=== PATIENT | female | born 1980 | race Caucasian/White ===

== ENCOUNTER 2021-11-09 11:01 | Observation (INO) | payer BC ==
[2021-11-09] MEDS ORDERED: LINZESS72 MCG PO (12:10)
[2021-11-09] MEDS ORDERED: SYNTHROID125 MCG PO (12:10)
[2021-11-09] MEDS ORDERED: HYDROCODON-ACE1 EAC2 PO (15:28)
[2021-11-09] MEDS ORDERED: COLACE100 MG PO (15:28)
[2021-11-09] MEDS ORDERED: AUGMENTIN 500-1 EACH PO (15:44)
== END 2021-11-10 14:10 | disposition home or self-care (01) ==
LOC: CDU 11:01
PROVIDERS: ADMIT Surgery
DX: K35.33 Acute appendicitis with perforation, localized peritonitis, and gangrene, with abscess (principal); E03.9 Hypothyroidism, unspecified; Z88.1 Allergy status to other antibiotic agents; Z79.899 Other long term (current) drug therapy
CPT/HCPCS: G0378; G0379; J0690; J2250; J2704; J3010; J7030; J7120